=== PATIENT | male | born 1985 | race Caucasian/White ===

== ENCOUNTER → 2016-05-07 | Outpatient (CLI) | payer BC ==
[2016-05-07 17:23] VITALS: BP 145/81
== END ==
LOC: MHUC 10:19
PROVIDERS: ATTEND Physician Assistant
DX: K52.9 Noninfective gastroenteritis and colitis, unspecified (principal)
CPT/HCPCS: 99213

== ENCOUNTER → 2016-05-08 | Outpatient (CLI) | payer BC ==
[2016-05-08 21:09] VITALS: BP 121/78
== END ==
LOC: MHUC 17:04
PROVIDERS: ATTEND Physician Assistant
DX: S61.012A Laceration without foreign body of left thumb without damage to nail, initial encounter (principal); W27.0XXA Contact with workbench tool, initial encounter; Y93.89 Activity, other specified; Y92.009 Unspecified place in unspecified non-institutional (private) residence as the place of occurrence of the external cause
CPT/HCPCS: 90471; 90715; 99213

== ENCOUNTER → 2016-06-15 | Outpatient (CLI) | payer OTHER, BC | LOC: RAD 11:18 | PROVIDERS: ATTEND Internal Medicine | DX: M25.532 Pain in left wrist (principal); M89.8X8 Other specified disorders of bone, other site | CPT/HCPCS: 73110 ==